=== PATIENT | female | born 1975 | race Caucasian/White ===

== ENCOUNTER 2023-06-15 22:01 | Emergency (ER) | payer OTHER ==
[~2023-06-15] VITALS: Ht 175.3 cm; Wt 140.6 kg
[2023-06-15 22:08] VITALS: BP 143/76; PULSE 113; RESP 19; TEMP 98.6; O2SAT 95
--- NOTE | 2023-06-15 22:25 | NUR ---
MIRANDA ESPANA, TRANSFERRED TO ER BED 8
--- NOTE | 2023-06-15 22:30 | NUR ---
48 Y/O F BIBA FROM HOME WITH C/C OF LL THROBBING ABD PAIN 9 RADIATING TO LL BACK X2DAYS. 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 PT HAS R TOES AMPUTATED. PT HAS BILATERAL SWELLING OF FEET. PT IS A&OX4, SKIN INTACT. PT FELT WARM TO TOUCH. PMH- STROKE ALLERGIES-SHELLFISH MEDS-BLOOD THINNERS
[2023-06-15] MEDS ORDERED: MORPHINE SULFATE 4 MG/ML SYR IVP ONE (22:50)
[2023-06-15] MEDS ORDERED: ONDANSETRON 4 MG/2 ML VIAL IVP ONE (22:50)
[2023-06-15] MEDS ORDERED: NACL 0.9% 1,000 ML IV ONE (22:50)
[2023-06-15 23:11] LABS: BASOPHILS % (AUTO) 0.4 % (0.0-2.0); EOSINOPHILS # (AUTO) 0.3 K/uL (0-0.4); EOSINOPHILS % (AUTO) 2.9 % (0.0-4.0); HEMATOCRIT 37.9 % (36-48); HEMOGLOBIN 12.9 g/dL (12.0-16.0); LYMPHOCYTES # (AUTO) 1.5 K/uL (2.5-16.5); LYMPHOCYTES % (AUTO) 15.2 % (20.5-51.1); MEAN CORPUSCULAR HEMOGLOBIN 31 pg (27-31); MEAN CORPUSCULAR HGB CONC 34 g/dL (33-37); MEAN CORPUSCULAR VOLUME 92.4 fL (80-94); MONOCYTES # (AUTO) 0.5 K/uL (0.8-1.0); MONOCYTES % (AUTO) 5.2 % (1.7-9.3); NEUTROPHILS # (AUTO) 7.7 K/uL (1.8-7.7); NEUTROPHILS % (AUTO) 76.3 % (42.2-75.2); PLATELET COUNT (AUTO) 219 K/uL (140-450); RED BLOOD CELL COUNT(AUTO) 4.11 MIL/uL (4.20-5.40); RED CELL DISTRIBUTION WIDTH 14.2 % (11.6-13.7)
[2023-06-15 23:25] LABS: PROTHROMBIN TIME 9.9 secs (10.8-13.4)
[2023-06-15 23:27] LABS: ALBUMIN 3.2 g/dL (3.4-5.0); ANION GAP 10.5 (8-16); CARBON DIOXIDE 30.2 mmol/L (21-32); CREATININE 0.8 mg/dL (0.6-1.3); POTASSIUM 4.7 mmol/L (3.5-5.1); TOTAL BILIRUBIN 0.4 mg/dL (0.0-1.0)
--- NOTE | 2023-06-15 23:30 | NUR ---
CALL LIGHT WITHIN REACH
[2023-06-15] MEDS ORDERED: ACETAMINOPHEN EXTRA STRENGTH 500 MG TAB PO ONE (23:50)
--- NOTE | 2023-06-16 | NUR ---
PURE WICK PLACED PER PT REQUEST DUE TO INCONTINENCE.
[2023-06-16 01:20] VITALS: O2SAT 92
--- NOTE | 2023-06-16 01:25 | NUR ---
UA COLLECTED AND SENT TO LAB
[2023-06-16 01:35] LABS: APPEARANCE,URINE CLOUDY (CLEAR); BILIRUBIN,URINE NEGATIVE (NEGATIVE); BLOOD, URINE 3+ (NEGATIVE); COLOR,URINE YELLOW (YELLOW); LEUKOCYTE ESTERASE ,URINE 3+ (NEGATIVE); NITRITE, URINE NEGATIVE (NEGATIVE); PH,URINE 6.5 (5.0-9.0); UGLUCOSE NEGATIVE (NEGATIVE)
[2023-06-16] MEDS ORDERED: cefTRIAXone 1,000 MG VIAL ONE (02:10)
--- NOTE | 2023-06-16 02:20 | NUR ---
PT TO CT VIA [facility]
--- NOTE | 2023-06-16 02:32 | NUR ---
PT RETURNED FROM CT VIA [facility]
[2023-06-16 04:22] VITALS: O2SAT 93
--- NOTE | 2023-06-16 07:24 | NUR ---
CONTINUATION OF CARE AT THIS POINT. REPORT RECEIVED FROM NOHEMY SALVADOR.
--- NOTE | 2023-06-16 07:24 | NUR ---
Pt report given to Marvel SALVADOR. Transfer of care at this time.
[2023-06-16 10:01] VITALS: O2SAT 95
--- NOTE | 2023-06-16 10:01 | NUR ---
NO CHANGE IN CONDITION, PT SLEEPING, CHEST RISE/FALL NOTED, NAD, ON AUTOCAD OPERATOR. AWAITING FOR [facility] ETA.
[2023-06-16 12:12] VITALS: BP 111/51; PULSE 73; RESP 15; TEMP 97.5; O2SAT 98
--- NOTE | 2023-06-16 12:12 | NUR ---
Patient to be transferred to [facility]. Is being transferred due to UTI. Receiving facility has accepting physician and available space. ER physician has signed transfer form. Patient or responsible constitution party has agreed to transfer and signed form. Patient belongings inventoried and will be sent with patient. Copy of nursing notes, lab reports, EKG, Physicians Orders and X-rays to be sent with patient. Report called to JULITA at receiving facility. [facility] ambulance service has been called for transfer. ETA is 30MIN. ACCEPTING ELSI NIEVES
--- NOTE | 2023-06-16 12:15 | NUR ---
PT ID FOUND IN PT FLOOR AFTER TRANSFER TO [facility]. CALLED MOTHER'S NUMBER LISTED ON PATIENT DATA EMERGENCY CONTACT AND NEXT OF KIN LIST. FEMALE THAT ANSWERED PHONE STATES I HAVE WRONG NUMBER. NUMBER REPEATED AND READ BACK BY FEMALE AND STATED I HAVE THE WRONG NUMBER/PERSON. ID SENT TO SECURITY DEPARTMENT, GIVEN TO MIGUELANGEL. Addendum: 06/16/23 at 1731 by VÍCTOR ID GIVEN TO CHRISSY WALKER- SECURITY DEPARTMENT
--- NOTE | 2023-06-16 17:52 | NUR ---
The patient's care was reviewed and supervised by [facility], RN.
== END 2023-06-16 12:12 | disposition short-term general hospital (02) ==
LOC: MED 22:01
DX: N39.0 Urinary tract infection, site not specified (principal); N20.0 Calculus of kidney; Z86.73 Personal history of transient ischemic attack (TIA), and cerebral infarction without residual deficits; Z87.442 Personal history of urinary calculi; Z91.013 Allergy to seafood; Z98.890 Other specified postprocedural states
CPT/HCPCS: 36415; 71045; 74176; 80053; 81001; 83605; 83690; 84703; 85025; 85610; 87040; 87086; 87426; 93005; 96361; 96365; 96375; 99285; J0696; J2270; J2405; J7030; Q0092